=== PATIENT | female | born 1970 | race Two or more races ===

== ENCOUNTER 2017-05-30 08:47 | Inpatient (IN) | payer MEDICAID ==
[~2017-05-30] VITALS: Ht 149.9 cm; Wt 80.7 kg
[~2017-05-30 08:47] MED LIST: ALPR0.5T7 PO; ASPI81TA27 PO; CARV6.2551 PO; FURO40TA4 PO; HYDR-4683 PO; INSLANTI SC; INSUINJ7 IJ; LISI10TA6 PO; MULTTAB99 PO; NORT25CA PO; OMEP20CA74 PO; PAR20T PO; QUET25TA37 PO; RANI150C11 PO; SIMV10TA84 PO
[2017-05-30] MEDS ORDERED: IODIXANOL 320MG/ML 100ML BTL IV ONE (09:12)
[2017-05-30] MEDS ORDERED: LIDOCAINE 2%HCL (LOCAL ANESTH.) INJ 20ML MDV ONE (09:13)
[2017-05-30] MEDS ORDERED: MIDAZOLAM HCL 1MG/1ML-2 ML VIAL ONE (10:19)
[2017-05-30] MEDS ORDERED: fentaNYL CITRATE 100 MCG/2 ML VL ONE (10:20)
[2017-05-30] MEDS ORDERED: ANGIOMAX 250 MG VIAL IV ONE (10:20)
[2017-05-30] MEDS ORDERED: SODIUM CHL 0.9% 0 ML ONE (10:20)
[2017-05-30] MEDS ORDERED: ASPirin-EC 81 mg tab PO ONE (12:00)
[2017-05-30] MEDS ORDERED: FUROSEMIDE 40 MG TAB PO ONE (12:00)
[2017-05-30] MEDS ORDERED: HYDROcodone-ACET 5/325MG TAB PO PRN (12:00)
[2017-05-30] MEDS ORDERED: LORazepam 0.5 MG TAB PO PRN (12:00)
[2017-05-30] MEDS ORDERED: NITROGLYCERIN 0.4 MG SL TAB SL PRN (12:00)
[2017-05-30] MEDS ORDERED: ACETAMINOPHEN 500 MG TAB PO PRN (12:00)
[2017-05-30] MEDS ORDERED: MORPHINE SULF INJ 2 MG/ML SYRINGE 1ML IV PRN (12:00)
[2017-05-30] MEDS ORDERED: ALPRAZolam 0.5 MG TAB PO ONE (12:00)
[2017-05-30] MEDS ORDERED: MULTIPLE VITAMIN TAB PO ONE (12:15)
[2017-05-30] MEDS ORDERED: LISINOPRIL 10 MG TAB PO ONE (12:15)
[2017-05-30] MEDS: FAMOTIDINE 20 MG TAB PO SCH ×2 (14:04→22:05)
[2017-05-30] MEDS: CARVEDILOL 12.5 MG TAB PO SCH ×2 (14:06→22:02)
[2017-05-30] MEDS: SODIUM CHLOR 0.9% PF (SALINE LOCK) 10ML VIAL IV SCH ×2 (14:08→22:01)
[2017-05-30] MEDS ORDERED: CLOPIDOGREL 300 MG TAB PO ONE (14:15)
[2017-05-30] MEDS ORDERED: SODIUM CHLORIDE 0.9% 250 ML IV ONE (14:15)
[2017-05-30 17:00] VITALS: BP 150/86
[2017-05-30 20:20] LABS: INR 0.99 (0.9-1.15); Prothrombin Time 10.8 sec (9.37-12.3)
[2017-05-30 22:00] VITALS: BP 150/84
[2017-05-30] MEDS ORDERED: INSULIN GLARGINE SC SCH (22:00)
[2017-05-30] MEDS ORDERED: ATORVASTATIN 20 MG TAB PO SCH (22:00)
[2017-05-30] MEDS ORDERED: PATIENTS OWN MEDICATION (Simvastatin 10 MG) PO SCH ×2 (22:00)
[2017-05-30] MEDS ORDERED: PATIENTS OWN MEDICATION (Ranitidine Hcl 1 CAP) PO SCH ×2 (22:00)
[2017-05-30] MEDS ORDERED: PATIENTS OWN MEDICATION (Carvedilol 6.25 MG) PO SCH ×2 (22:00)
[2017-05-30] MEDS: QUEtiapine FUMARATE 25 MG TAB PO SCH (22:02)
[2017-05-30] MEDS: INSULIN DETEMIR(LEVEMIR) 1unit/0.01ml Soln (100units/ml) SC SCH (22:02)
[2017-05-30] MEDS: ALPRAZolam 0.5 MG TAB PO SCH (22:02)
[2017-05-30] MEDS: ATORVASTATIN 20 MG TAB PO SCH (22:02)
[2017-05-30] MEDS: PARoxetine 20 MG TAB PO SCH (22:02)
[2017-05-31 05:00] VITALS: BP 135/72
[2017-05-31] MEDS: SODIUM CHLOR 0.9% PF (SALINE LOCK) 10ML VIAL IV SCH ×3 (05:49→21:34)
[2017-05-31 06:57] LABS: Basophils # (auto) 0 uL; Basophils % (auto) 0.4 % (0.0-2.0); Eosinophils # (auto) 0.2 uL; Eosinophils % (auto) 2.3 % (0.0-7.0); Hematocrit 37.5 % (36.0-46.0); Hemoglobin 12.7 g/dL (12.2-16.2); Lymphocytes # (auto) 2.3 uL; Lymphocytes % (auto) 27.5 % (10.0-50.0); Mean Corpuscular Hemoglobin 29.9 pg (28.0-32.0); Mean Corpuscular Hgb Conc. 33.9 g/dL (32.0-36.0); Mean Corpuscular Volume 88.3 fL (80.0-100.0); Mean Platelet Volume 9.6 fL (6.9-10.8); Monocytes # (auto) 0.6 uL; Monocytes % (auto) 7.6 % (0.0-12.0); Neutrophils # (auto) 5.2 uL; Neutrophils % (auto) 62.2 % (37.0-80.0); Platelet Count (auto) 123 10^3/uL (140-450); Red Cell Distribution Width 13.8 % (11.8-14.3); White Blood Cell 8.4 10^3/uL (4.4-10.8)
[2017-05-31 07:12] LABS: INR 0.97 (0.9-1.15); Partial Thromboplastin Time 26.1 sec (22.64-33.71); Prothrombin Time 10.6 sec (9.37-12.3)
[2017-05-31 07:19] LABS: BUN/Creatinine Ratio 16.1; Calcium 8.9 mg/dL (8.5-10.1); Magnesium 1.9 mg/dL (1.6-2.6); Potassium 4.5 mmol/L (3.5-5.1)
[2017-05-31] MEDS: FUROSEMIDE 40 MG TAB PO SCH (08:37)
[2017-05-31] MEDS: CARVEDILOL 12.5 MG TAB PO SCH ×2 (08:37→21:32)
[2017-05-31] MEDS: FAMOTIDINE 20 MG TAB PO SCH ×2 (08:37→21:34)
[2017-05-31] MEDS: LISINOPRIL 10 MG TAB PO SCH (08:38)
[2017-05-31 09:00] VITALS: BP 141/73
[2017-05-31] MEDS ORDERED: ASPirin-EC 81 mg tab PO SCH (10:00)
[2017-05-31] MEDS: ALPRAZolam 0.5 MG TAB PO SCH ×2 (10:00→21:31)
[2017-05-31] MEDS: MULTIPLE VITAMIN TAB PO SCH (10:00)
[2017-05-31] MEDS: ASPirin 81 mg TAB PO SCH (10:00)
[2017-05-31] MEDS: CLOPIDOGREL BISULFATE 75 MG TAB PO SCH (10:00)
[2017-05-31] MEDS ORDERED: ANGIOMAX 250 MG VIAL IV ONE ×2 (10:10→11:31)
[2017-05-31] MEDS ORDERED: fentaNYL CITRATE 100 MCG/2 ML VL ONE (10:10)
[2017-05-31] MEDS ORDERED: SODIUM CHL 0.9% 50 ML ONE ×2 (10:10→11:31)
[2017-05-31] MEDS ORDERED: MIDAZOLAM HCL 1MG/1ML-2 ML VIAL ONE ×2 (10:10→11:04)
[2017-05-31] MEDS ORDERED: LIDOCAINE 2%HCL (LOCAL ANESTH.) INJ 20ML MDV ONE (10:19)
[2017-05-31] MEDS ORDERED: IODIXANOL 320MG/ML 100ML BTL IV ONE ×2 (10:19→11:37)
[2017-05-31] MEDS ORDERED: IOHEXOL 350 MG/ML 100ML IJ ONE (10:25)
[2017-05-31] MEDS ORDERED: CLOPIDOGREL 300 MG TAB ONE (10:33)
[2017-05-31] MEDS ORDERED: ASPirin 325 MG TAB ONE (10:33)
[2017-05-31] MEDS ORDERED: LABETALOL HCL 5 MG/ML 4ML SYRINGE IV ONE (11:08)
[2017-05-31] MEDS ORDERED: TICAGRELOR 90 MG TAB ONE (11:42)
[2017-05-31 14:00] VITALS: BP 166/92
[2017-05-31 16:39] VITALS: BP 160/93
[2017-05-31] MEDS ORDERED: hydrALAZINE HCL 20 MG/ML VL IV PRN (18:15)
[2017-05-31 19:09] LABS: Prothrombin Time 10.9 sec (9.37-12.3)
[2017-05-31 19:19] LABS: Basophils # (auto) 0 uL; Basophils % (auto) 0.3 % (0.0-2.0); Eosinophils # (auto) 0.2 uL; Eosinophils % (auto) 1.4 % (0.0-7.0); Hematocrit 36.5 % (36.0-46.0); Lymphocytes # (auto) 2.2 uL; Lymphocytes % (auto) 20.4 % (10.0-50.0); Mean Corpuscular Hemoglobin 29.2 pg (28.0-32.0); Mean Corpuscular Volume 88.7 fL (80.0-100.0); Mean Platelet Volume 10.2 fL (6.9-10.8); Monocytes # (auto) 0.6 uL; Monocytes % (auto) 5.9 % (0.0-12.0); Neutrophils # (auto) 7.8 uL; Platelet Count (auto) 134 10^3/uL (140-450); Red Cell Distribution Width 14.1 % (11.8-14.3); White Blood Cell 10.9 10^3/uL (4.4-10.8)
[2017-05-31] MEDS: QUEtiapine FUMARATE 25 MG TAB PO SCH (21:31)
[2017-05-31] MEDS: ATORVASTATIN 20 MG TAB PO SCH (21:32)
[2017-05-31] MEDS: PARoxetine 20 MG TAB PO SCH (21:33)
[2017-05-31] MEDS: INSULIN DETEMIR(LEVEMIR) 1unit/0.01ml Soln (100units/ml) SC SCH (21:57)
[2017-05-31 22:00] VITALS: BP 149/76
[2017-06-01 05:00] VITALS: BP 154/92
[2017-06-01] MEDS: SODIUM CHLOR 0.9% PF (SALINE LOCK) 10ML VIAL IV SCH (06:28)
[2017-06-01 06:44] LABS: Basophils # (auto) 0 uL; Basophils % (auto) 0.3 % (0.0-2.0); Eosinophils # (auto) 0.2 uL; Eosinophils % (auto) 1.6 % (0.0-7.0); Hematocrit 37.5 % (36.0-46.0); Hemoglobin 12.7 g/dL (12.2-16.2); Lymphocytes # (auto) 1.9 uL; Mean Corpuscular Hemoglobin 29.9 pg (28.0-32.0); Mean Corpuscular Hgb Conc. 33.9 g/dL (32.0-36.0); Mean Platelet Volume 9.8 fL (6.9-10.8); Monocytes # (auto) 0.8 uL; Monocytes % (auto) 7.6 % (0.0-12.0); Neutrophils # (auto) 7.5 uL; Neutrophils % (auto) 72.5 % (37.0-80.0); Platelet Count (auto) 123 10^3/uL (140-450); Red Cell Distribution Width 13.9 % (11.8-14.3); White Blood Cell 10.3 10^3/uL (4.4-10.8)
[2017-06-01 07:07] LABS: Calcium 8.4 mg/dL (8.5-10.1); Phosphorus 3.8 mg/dL (2.5-4.90); Potassium 3.9 mmol/L (3.5-5.1)
[2017-06-01 08:00] VITALS: BP 124/74
[2017-06-01 09:00] VITALS: BP 124/74
[2017-06-01] MEDS: CARVEDILOL 12.5 MG TAB PO SCH (09:27)
[2017-06-01] MEDS: ALPRAZolam 0.5 MG TAB PO SCH (09:27)
[2017-06-01] MEDS: CLOPIDOGREL BISULFATE 75 MG TAB PO SCH (09:28)
[2017-06-01] MEDS: FAMOTIDINE 20 MG TAB PO SCH (09:28)
[2017-06-01] MEDS: LISINOPRIL 10 MG TAB PO SCH (09:28)
[2017-06-01] MEDS: FUROSEMIDE 40 MG TAB PO SCH (09:29)
[2017-06-01] MEDS: MULTIPLE VITAMIN TAB PO SCH (09:29)
[2017-06-01] MEDS: ASPirin 81 mg TAB PO SCH (09:29)
[2017-06-01] MEDS ORDERED: CLOP75TA41 PO (11:59)
[2017-06-01 13:00] VITALS: BP 126/77
[2017-06-01 14:48] VITALS: BP 124/74
== END 2017-06-01 15:20 | disposition home or self-care (01) | DRG 174 ==
LOC: CATH 08:47 → EAST 08:48 → TELE-EAST 15:37
PROVIDERS: ADMIT Internal Medicine Cardiovascular Disease; ATTEND Internal Medicine
PROC: 4A023N7 Measurement of Cardiac Sampling and Pressure, Left Heart, Percutaneous Approach (ICD-10-PCS; 2017-05-30)
PROC: B2111ZZ Fluoroscopy of Multiple Coronary Arteries using Low Osmolar Contrast (ICD-10-PCS; 2017-05-30)
PROC: B2151ZZ Fluoroscopy of Left Heart using Low Osmolar Contrast (ICD-10-PCS; 2017-05-30)
PROC: 027135Z Dilation of Coronary Artery, Two Arteries with Two Drug-eluting Intraluminal Devices, Percutaneous Approach (ICD-10-PCS; principal; 2017-05-31)
PROC: 02703Z6 Dilation of Coronary Artery, One Artery, Bifurcation, Percutaneous Approach (ICD-10-PCS; 2017-05-31)
DX: I21.4 Non-ST elevation (NSTEMI) myocardial infarction (principal); E66.01 Morbid (severe) obesity due to excess calories; I10 Essential (primary) hypertension; E11.9 Type 2 diabetes mellitus without complications; I25.10 Atherosclerotic heart disease of native coronary artery without angina pectoris; I25.5 Ischemic cardiomyopathy; E78.5 Hyperlipidemia, unspecified; E78.00 Pure hypercholesterolemia, unspecified; Z79.4 Long term (current) use of insulin; Z87.828 Personal history of other (healed) physical injury and trauma; Z82.49 Family history of ischemic heart disease and other diseases of the circulatory system; Z68.35 Body mass index [BMI] 35.0-35.9, adult
CPT/HCPCS: 92920; 92928; 93458; C9600; 36415; 71010; 80048; 82962; 83735; 84100; 84702; 85025; 85610; 85730; 99152; 99153; C1874; C1887; J1815; J2250; J3490; Q9967